=== PATIENT | male | born 1975 | race African-American/Black ===

== ENCOUNTER 2025-06-23 19:45 | Emergency (ER) | payer OTHER ==
[~2025-06-23] VITALS: Ht 182.9 cm; Wt 114.0 kg
[2025-06-23 19:56] VITALS: BP 98/51; PULSE 70; RESP 12; TEMP 36.6; O2SAT 97
[2025-06-23] MEDS ORDERED: SODIUM CHLORIDE 0.9% 1,000 ML IV ONE (20:45)
== END 2025-06-23 20:20 | disposition left against medical advice (07) ==
LOC: ER 19:45
DX: R55 Syncope and collapse (principal); R61 Generalized hyperhidrosis; F10.90 Alcohol use, unspecified, uncomplicated; Y90.9 Presence of alcohol in blood, level not specified
CPT/HCPCS: 99283; 93005; J7030